=== PATIENT | male | born 1980 | race Caucasian/White ===

== ENCOUNTER 2021-11-13 23:39 | Emergency (ER) | payer SELFPAY ==
[~2021-11-13 23:39] MED LIST: CELEXA20 MG PO; LIPITOR40 MG PO
[2021-11-14 00:36] LABS: INR 1.06 (0.9-1.2); PROTHROMBIN TIME 13.2 SECONDS (11.8-13.4); PTT 24.5 SECONDS (24.4-34.7)
[2021-11-14 00:46] LABS: BILIRUBIN - TOTAL 0.4 mg/dL (0.2-1.0); BUN/CREAT RATIO (CALC) 14.8 RATIO; CREATININE 1.15 mg/dL (0.67-1.17); GLOBULIN (CALCULATION) 3.3 g/dL; POTASSIUM 4.7 mmol/L (3.5-5.1); TOTAL PROTEIN 7.3 g/dL (6.4-8.2)
[2021-11-14 00:50] LABS: BASOPHIL 0.5 % (0-2); EOSINOPHIL 1.1 & (0-5); HGB 14.3 g/dl (13.2-18.0); LYMPHOCYTE 25.7 % (15-48); MCH 28.5 pg (25.0-31.0); MCHC 33.3 g/dL (32.0-36.0); MCV 85.8 fL (78.0-100.0); MPV 8.9 fL (6.0-9.5); NEUTROPHIL 66.4 % (41-80); PLT 267 K/uL (150-400); RBC 5.01 M/uL (4.70-6.00); RDW 12.8 % (11.5-14.0); WBC 11.92 K/uL (4.0-10.5)
[2021-11-14 02:40] LABS: BILIRUBIN NEGATIVE (NEGATIVE); BLOOD NEGATIVE Ery/uL (NEGATIVE); CLARITY CLEAR (CLEAR); COLOR YELLOW (YELLOW); GLUCOSE (U) NORMAL (NORMAL); LEUKOCYTES NEGATIVE Leu/uL (NEGATIVE); NITRITE NEGATIVE (NEGATIVE); PROTEIN 1+ mg/dL (NEGATIVE); SPECIFIC GRAVITY >=1.030 (1.001-1.030); UROBILINOGEN 0.2 mg/dL (0.2-1.0)
[2021-11-14 02:50] LABS: AMORPHOUS URATES CRYSTALS TRACE; SQUAMOUS EPITHELIAL CELLS RARE
[2021-11-14 02:51] LABS: GRANULAR CASTS TRACE
== END 2021-11-14 03:28 | disposition home or self-care (01) ==
LOC: FER 23:39
PROVIDERS: Emergency Medicine
DX: R55 Syncope and collapse (principal); E86.0 Dehydration; E11.9 Type 2 diabetes mellitus without complications; Z79.84 Long term (current) use of oral hypoglycemic drugs; Z28.310 Unvaccinated for COVID-19
CPT/HCPCS: 36415; 71045; 80053; 81001; 84484; 85025; 85379; 85610; 85730; 93005; J7030